=== PATIENT | female | born 1965 | race Caucasian/White ===

== ENCOUNTER 2019-05-25 14:16 | Emergency (ER) | payer MEDICAID ==
[~2019-05-25] VITALS: Ht 160 cm; Wt 65.8 kg
--- NOTE | 2019-05-25 14:45 | NUR ---
Patient ambulated with stable gait. Speech is clear, speaks in complete sentences. A/Ox4. Patient came for c/o shortness of breath, reports she had an asthma attack and may be d/t her "hay fever" allergies. Patient reports that she does smoke cigarettes. Respiratory even and unlabored, no cough or sob noted upon assessment. No cardiovascular distress noted. Denies any n/v/d.
--- NOTE | 2019-05-25 15:17 | NUR ---
Patient left without being seen by ER physician. Stated she needed to leave to picker / packer her daughter from school. ERMD aware.
== END 2019-05-25 15:20 | disposition left against medical advice (07) ==
LOC: EDSEX 14:20 → ER 14:20
DX: Z53.21 Procedure and treatment not carried out due to patient leaving prior to being seen by health care provider (principal)
CPT/HCPCS: A4663